=== PATIENT | male | born 1945 | race Two or more races ===

== ENCOUNTER 2017-11-22 21:35 | Emergency (ER) | payer MEDICARE ==
[~2017-11-22] VITALS: Ht 170.2 cm; Wt 65.8 kg
[2017-11-22 21:44] VITALS: BP 140/69
--- NOTE | 2017-11-22 21:45 | NUR ---
[facility] FAMILY C/O "CONSTIPATION X4 DAYS WITH PAIN 04/09 NONRADIATING", NAD NOTED, VSS, RESP EVEN AND UNLABORED, WAITING FOR MD ABDI.
[2017-11-22] MEDS ORDERED: IV NS 0.9% 1,000 ML BAG IV ONE (23:00)
[2017-11-22] MEDS ORDERED: LIDOCAINE 2% JEL UROJET 10 ML MM ONE (23:02)
[2017-11-22] MEDS ORDERED: NA PHOS,M-B/NA PHOS,DI-BA 1 EA ENEMA RC ONE ×2 (23:04→23:30)
[2017-11-22 23:17] LABS: BASOPHILS % (AUTO) 0.4 % (0.0-2.0); HEMATOCRIT 38 % (39-51); HEMOGLOBIN 12.8 g/dL (13.5-17.5); LYMPHOCYTES # (AUTO) 0.6 /CMM (0.8-4.8); LYMPHOCYTES % (AUTO) 7.5 % (20.0-44.0); MEAN CORPUSCULAR HEMOGLOBIN 32 PG (26.0-33.0); MEAN CORPUSCULAR HGB CONC 34 g/dl (31.0-36.0); MEAN CORPUSCULAR VOLUME 92 fL (80-96); MONOCYTES % (AUTO) 12.6 % (2.0-12.0); NEUTROPHILS # (AUTO) 6.3 /CMM (1.8-8.9); NEUTROPHILS % (AUTO) 79.5 % (43.0-81.0); PLATELET COUNT (AUTO) 110 /CMM (150-450); RDW COEFFICIENT OF VARIATION 13.1 (11.5-15.0); RED BLOOD CELL COUNT(AUTO) 4.07 MIL/uL (4.5-6.0)
--- NOTE | 2017-11-22 23:26 | NUR ---
PT UNABLE TO GIVE URINE SAMPLE AT THIS TIME, WILL TRY AGAIN AFTER IVFLUIDS
[2017-11-22 23:29] LABS: CARBON DIOXIDE 29 mmol/L (21-32); CHLORIDE 99 mmol/L (98-107); CREATININE 0.9 mg/dL (0.6-1.3); GLUCOSE 107 mg/dL (74-106); POTASSIUM 4.4 mmol/L (3.5-5.1); SODIUM SERUM 136 mmol/L (136-145); UREA NITROGEN, BLOOD 10 mg/dL (7-18)
[2017-11-22 23:33] LABS: INR 0.96 (0.87-1.13)
[2017-11-22 23:35] LABS: ALANINE AMINOTRANSFERASE 23 U/L (12-78); ALBUMIN 3.6 g/dL (3.4-5.0); ALKALINE PHOSPHATASE 116 U/L (46-116); ASPARTATE AMINOTRANSFERASE 30 U/L (15-37); BILIRUBIN,DIRECT 0.1 mg/dL (0.0-0.2); BILIRUBIN,TOTAL 0.6 mg/dL (0.2-1.0); LIPASE 94 U/L (73-393); TOTAL PROTEIN, SERUM 8.9 g/dL (6.4-8.2)
--- NOTE | 2017-11-23 00:44 | NUR ---
Patient does not wish to proceed with medical care recommended by . Patient given information related to possible complications, up to and including , which could occur as a result of leaving the hospital at this time. Patient verbalizes understanding of risks involved due to leaving against medical advice. Patient has signed AMA form.
== END 2017-11-23 00:46 | disposition left against medical advice (07) ==
LOC: ER 21:37
DX: K59.00 Constipation, unspecified (principal); Z53.20 Procedure and treatment not carried out because of patient's decision for unspecified reasons; Z88.0 Allergy status to penicillin; Z86.73 Personal history of transient ischemic attack (TIA), and cerebral infarction without residual deficits
CPT/HCPCS: 36415; 74176; 80048; 80076; 83690; 85025; 85730; 96360; 99285; A4606; J3490; J7030; Z7610

== ENCOUNTER 2024-01-23 16:09 | Inpatient (IN) | payer MEDICARE ==
[~2024-01-23] VITALS: Ht 177.8 cm; Wt 44.5 kg
[2024-01-23 16:38] LABS: BASOPHILS # (AUTO) 0.1 K/uL (0.0-0.2); BASOPHILS % (AUTO) 0.9 % (0.0-2.0); EOSINOPHILS # (AUTO) 0.1 K/uL (0.0-0.7); EOSINOPHILS % (AUTO) 0.9 % (0.0-6.0); HEMATOCRIT 31 % (39-51); LYMPHOCYTES # (AUTO) 1.4 K/uL (0.8-4.8); LYMPHOCYTES % (AUTO) 15.9 % (20.0-44.0); MEAN CORPUSCULAR HEMOGLOBIN 29 PG (26.0-33.0); MEAN CORPUSCULAR HGB CONC 32 g/dl (31.0-36.0); MEAN CORPUSCULAR VOLUME 90 fL (80-96); MONOCYTES % (AUTO) 11.1 % (2.0-12.0); NEUTROPHILS # (AUTO) 6.1 K/uL (1.8-8.9); NEUTROPHILS % (AUTO) 71.2 % (43.0-81.0); PLATELET COUNT (AUTO) 338 K/uL (150-450); RED BLOOD CELL COUNT(AUTO) 3.43 MIL/uL (4.5-6.0); RED CELL DISTRIBUTION WIDTH 16.2 % (11.5-15.0); WHITE BLOOD COUNT (AUTO) 8.6 K/uL (4.3-11.0)
[2024-01-23 17:01] LABS: CALCIUM, SERUM 8.5 mg/dL (8.5-10.1); CARBON DIOXIDE 23 mmol/L (21-32); CHLORIDE 101 mmol/L (98-107); CREATININE 0.7 mg/dL (0.6-1.3); GLUCOSE 101 mg/dL (74-106); POTASSIUM 4.4 mmol/L (3.5-5.1); SODIUM SERUM 129 mmol/L (136-145); UREA NITROGEN, BLOOD 11 mg/dL (7-18)
[2024-01-23 17:13] LABS: ALANINE AMINOTRANSFERASE 22 U/L (12-78); ALBUMIN 2.7 g/dL (3.4-5.0); ALKALINE PHOSPHATASE 143 U/L (46-116); ASPARTATE AMINOTRANSFERASE 20 U/L (15-37); BILIRUBIN,DIRECT 0.1 mg/dL (0.0-0.2); BILIRUBIN,TOTAL 0.3 mg/dL (0.2-1.0); TOTAL PROTEIN, SERUM 7.8 g/dL (6.4-8.2)
[2024-01-23] MEDS ORDERED: OMEP20CA15 PO (17:41)
[2024-01-23] MEDS ORDERED: POTA-10 PO (17:41)
[2024-01-23] MEDS ORDERED: LIOT25TA13 PO (17:41)
[2024-01-23] MEDS ORDERED: CLOP75TA15 PO (17:41)
[2024-01-23] MEDS ORDERED: MEGE20TA3 PO (17:41)
[2024-01-23] MEDS ORDERED: ESCI20TA PO (17:41)
[2024-01-23] MEDS ORDERED: SIMV-49 PO (17:41)
[2024-01-23] MEDS ORDERED: METO25TA4 PO (17:41)
[2024-01-23] MEDS ORDERED: MELA3TAB41 PO (17:41)
[2024-01-23] MEDS ORDERED: ACETAMINOPHEN 325 MG TABLET PO PRN (18:30)
[2024-01-23] MEDS ORDERED: ONDANSETRON HCL/PF 4 MG/2 ML VIAL IVP PRN (18:30)
[2024-01-23] MEDS ORDERED: MAGNESIUM HYDROXIDE 30 ML UDC PO PRN (18:30)
[2024-01-23] MEDS ORDERED: MAG HYDROX/AL HYDROX/SIMETH 30 ML UDC PO PRN (18:30)
[2024-01-23] MEDS: NITROGLYCERIN PACKET 1 GM PACKET TD ONE (19:12)
[2024-01-23] MEDS: ASPIRIN 325 MG TABLET PO ONE (19:12)
[2024-01-23] MEDS: ENOXAPARIN SODIUM 40 MG/0.4 ML DISP.SYRIN SQ SCH (19:13)
[2024-01-23 20:00] VITALS: BP 121/66; TEMP 98.4; O2SAT 100
[2024-01-23] MEDS: SIMVASTATIN 20 MG TABLET PO SCH (21:39)
[2024-01-23] MEDS ORDERED: Medication Not On Formulary EA (Melatonin 3 MG) PO SCH (22:00)
[2024-01-24] VITALS (7 sets, daily range): BP systolic 84–125; BP diastolic 54–76; TEMP 97.2–98.6; O2SAT 96–100
[2024-01-24] MEDS: ZOLPIDEM TARTRATE 5 MG TABLET PO PRN (00:43)
[2024-01-24] MEDS: Z GUARD REMEDY 4 OZ OINT TP PRN (00:47)
[2024-01-24 07:27] LABS: BASOPHILS # (AUTO) 0.1 K/uL (0.0-0.2); BASOPHILS % (AUTO) 0.7 % (0.0-2.0); EOSINOPHILS # (AUTO) 0.1 K/uL (0.0-0.7); EOSINOPHILS % (AUTO) 1.3 % (0.0-6.0); HEMATOCRIT 28 % (39-51); HEMOGLOBIN 9.2 g/dL (13.5-17.5); LYMPHOCYTES # (AUTO) 1.6 K/uL (0.8-4.8); LYMPHOCYTES % (AUTO) 23.3 % (20.0-44.0); MEAN CORPUSCULAR HEMOGLOBIN 30 PG (26.0-33.0); MEAN CORPUSCULAR HGB CONC 33 g/dl (31.0-36.0); MEAN CORPUSCULAR VOLUME 93 fL (80-96); MONOCYTES % (AUTO) 14.2 % (2.0-12.0); NEUTROPHILS # (AUTO) 4.1 K/uL (1.8-8.9); NEUTROPHILS % (AUTO) 60.5 % (43.0-81.0); PLATELET COUNT (AUTO) 296 K/uL (150-450); RED BLOOD CELL COUNT(AUTO) 3.04 MIL/uL (4.5-6.0); RED CELL DISTRIBUTION WIDTH 16.2 % (11.5-15.0); WHITE BLOOD COUNT (AUTO) 6.8 K/uL (4.3-11.0)
[2024-01-24] MEDS: PANTOPRAZOLE 40 MG TABLET.DR PO SCH (07:50)
[2024-01-24 07:51] LABS: CALCIUM, SERUM 8.1 mg/dL (8.5-10.1); CARBON DIOXIDE 23 mmol/L (21-32); CHLORIDE 104 mmol/L (98-107); CREATININE 0.6 mg/dL (0.6-1.3); GLUCOSE 82 mg/dL (74-106); MAGNESIUM 1.7 mg/dL (1.8-2.4); PHOSPHORUS 2.9 mg/dL (2.5-4.9); POTASSIUM 3.3 mmol/L (3.5-5.1); SODIUM SERUM 135 mmol/L (136-145); UREA NITROGEN, BLOOD 8 mg/dL (7-18)
[2024-01-24] MEDS: CLOPIDOGREL BISULFATE 75 MG TABLET PO SCH (08:17)
[2024-01-24] MEDS: POTASSIUM CHLORIDE 10 MEQ TABLET.SA PO SCH (08:17)
[2024-01-24] MEDS: MEGESTROL ACETATE 40 MG TABLET PO SCH (08:18)
[2024-01-24] MEDS: ESCITALOPRAM OXALATE (10 MG) 10 MG TABLET PO SCH (08:18)
[2024-01-24] MEDS: LIOTHYRONINE SODIUM (25 MCG) 25 MCG TABLET PO SCH (08:20)
[2024-01-24] MEDS: METOPROLOL SUCCINATE 25 MG TAB.SR.24H PO SCH (08:50)
[2024-01-24 08:57] LABS: CHOLESTEROL 101 mg/dL (<200); HDL CHOLESTEROL 39 mg/dL (40-60); LDL 50 mg/dL (0-99); THYROID STIMULATING HORMONE 23.311 uIU/mL (0.358-3.74); TRIGLYCERIDES 60 mg/dL (30-150)
[2024-01-24] MEDS ORDERED: MAGNESIUM OXIDE 400 MG TABLET PO ONE (10:00)
[2024-01-24] MEDS ORDERED: POTASSIUM CHLORIDE 20 MEQ TAB.PRT.SR PO ONE (10:00)
[2024-01-24 10:24] LABS: FERRITIN 910 ng/mL (8-388)
[2024-01-24 10:34] LABS: IRON, SERUM 45 ug/dl (50-175); TOTAL IRON BINDING CAPACITY 180 ug/dl (250-450)
[2024-01-24] MEDS: POTASSIUM CHLORIDE 20 MEQ TAB.PRT.SR PO SCH (10:59)
[2024-01-24] MEDS: Magnesium 1GM/D5W 100ML PREMIX 100 ML IV SCH (10:59)
[2024-01-24] MEDS: IV NS 0.9% 500 ML BAG IV ONE (13:53)
[2024-01-24] MEDS ORDERED: IV NS 0.9% 250 ML IV ONE (14:46)
[2024-01-24] MEDS ORDERED: CT SWABBABLE VALVE TRANS SET 1 EA INFUS.SET MC ONE (14:46)
[2024-01-24] MEDS ORDERED: IOHEXOL-350 100 ML VIAL IV ONE (14:46)
[2024-01-24] MEDS ORDERED: NITROGLYCERIN 0.4 MG/TAB BOTTLE ONE (14:47)
[2024-01-24] MEDS ORDERED: METOPROLOL TARTRATE INJ 5 MG/5 ML AMPUL ONE (14:47)
[2024-01-24] MEDS: NITROGLYCERIN 0.4 MG/TAB BOTTLE SL ONE (15:22)
[2024-01-24] MEDS: METOPROLOL TARTRATE INJ 5 MG/5 ML AMPUL IVP PRN (15:23)
[2024-01-24] MEDS ORDERED: ENOXAPARIN SODIUM 40 MG/0.4 ML DISP.SYRIN SQ SCH (21:00)
[2024-01-25] VITALS: BP 134/73; TEMP 98.2; O2SAT 96
[2024-01-25 00:47] VITALS: BP 134/73; TEMP 98.2; O2SAT 96
[2024-01-25 04:00] VITALS: BP 161/90; TEMP 98.2; O2SAT 98
[2024-01-25 04:16] VITALS: BP 161/90; TEMP 98.2; O2SAT 98
[2024-01-25 08:00] VITALS: BP 112/64; TEMP 97.5; O2SAT 100
[2024-01-25] MEDS: METOPROLOL TARTRATE 50 MG TABLET PO SCH (09:00)
[2024-01-25 10:49] LABS: BASOPHILS # (AUTO) 0.1 K/uL (0.0-0.2); EOSINOPHILS # (AUTO) 0.1 K/uL (0.0-0.7); EOSINOPHILS % (AUTO) 1.4 % (0.0-6.0); HEMATOCRIT 28 % (39-51); HEMOGLOBIN 9.4 g/dL (13.5-17.5); LYMPHOCYTES % (AUTO) 18.8 % (20.0-44.0); MEAN CORPUSCULAR HEMOGLOBIN 30 PG (26.0-33.0); MEAN CORPUSCULAR HGB CONC 33 g/dl (31.0-36.0); MEAN CORPUSCULAR VOLUME 89 fL (80-96); MONOCYTES # (AUTO) 0.8 K/uL (0.1-1.30); MONOCYTES % (AUTO) 15.2 % (2.0-12.0); NEUTROPHILS # (AUTO) 3.3 K/uL (1.8-8.9); NEUTROPHILS % (AUTO) 63.6 % (43.0-81.0); PLATELET COUNT (AUTO) 305 K/uL (150-450); RED BLOOD CELL COUNT(AUTO) 3.15 MIL/uL (4.5-6.0); RED CELL DISTRIBUTION WIDTH 15.7 % (11.5-15.0); WHITE BLOOD COUNT (AUTO) 5.2 K/uL (4.3-11.0)
[2024-01-25 10:52] LABS: CALCIUM, SERUM 8.1 mg/dL (8.5-10.1); CREATININE 0.6 mg/dL (0.6-1.3); POTASSIUM 3.1 mmol/L (3.5-5.1)
[2024-01-25 10:57] LABS: ALBUMIN 2.2 g/dL (3.4-5.0); BILIRUBIN,TOTAL 0.3 mg/dL (0.2-1.0); MAGNESIUM 1.8 mg/dL (1.8-2.4); PHOSPHORUS 2.1 mg/dL (2.5-4.9); TOTAL PROTEIN, SERUM 7.1 g/dL (6.4-8.2)
[2024-01-25 11:06] LABS: THYROID STIMULATING HORMONE 25.563 uIU/mL (0.358-3.74)
[2024-01-25] MEDS: ENSURE ENLIVE 237 ML LIQUID (VANILLA) PO SCH (13:00)
[2024-01-25] MEDS ORDERED: IV NS 0.9% 250 ML IV ONE (14:47)
[2024-01-25] MEDS ORDERED: IOHEXOL-350 100 ML VIAL IV ONE (14:47)
[2024-01-25] MEDS ORDERED: METOPROLOL TARTRATE INJ 5 MG/5 ML AMPUL ONE (14:47)
[2024-01-25] MEDS ORDERED: CT SWABBABLE VALVE TRANS SET 1 EA INFUS.SET MC ONE (14:47)
[2024-01-25] MEDS ORDERED: NITROGLYCERIN 0.4 MG/TAB BOTTLE ONE (14:47)
[2024-01-25] MEDS: NITROGLYCERIN 0.4 MG/TAB BOTTLE SL ONE (15:26)
[2024-01-25 16:00] VITALS: BP 118/57; TEMP 98.6; O2SAT 100
[2024-01-25] MEDS: K PHOS NEUTRAL 250 MG TABLET PO ONE (16:45)
[2024-01-26] MEDS ORDERED: METOPROLOL SUCCINATE 50 MG TAB.SR.24H PO SCH (09:00)
== END 2024-01-25 21:09 | disposition home health service (06) | DRG 313 ==
LOC: ER 16:11 → TELE 17:35
PROVIDERS: ADMIT Student in an Organized Health Care Education/Training Program
DX: R07.89 Other chest pain (principal); E44.0 Moderate protein-calorie malnutrition; C83.10 Mantle cell lymphoma, unspecified site; F03.93 Unspecified dementia, unspecified severity, with mood disturbance; E22.2 Syndrome of inappropriate secretion of antidiuretic hormone; E03.9 Hypothyroidism, unspecified; Z86.73 Personal history of transient ischemic attack (TIA), and cerebral infarction without residual deficits; I10 Essential (primary) hypertension; Z88.0 Allergy status to penicillin; Z79.02 Long term (current) use of antithrombotics/antiplatelets; Z79.899 Other long term (current) drug therapy; E87.6 Hypokalemia; E83.42 Hypomagnesemia; E78.5 Hyperlipidemia, unspecified; D64.9 Anemia, unspecified; E86.1 Hypovolemia; F39 Unspecified mood [affective] disorder; T43.225A Adverse effect of selective serotonin reuptake inhibitors, initial encounter; Y92.9 Unspecified place or not applicable; Z79.82 Long term (current) use of aspirin
CPT/HCPCS: 36415; 71045-TC; 75574; 80048-TC; 80053-TC; 80061-TC; 80076-TC; 82728-TC; 83540-TC; 83735-TC; 84100-TC; 84439-TC; 84443-TC; 84484-TC; 85025-TC; 87081-TC; 93307-TC; 97110-TC; 97116-TC; 97530-TC; A4223; G0378; J1650; J3475; J3490; J7030; J7040; J7050; Q9967

== ENCOUNTER 2024-04-21 11:27 | Inpatient (IN) | payer MEDICARE ==
[~2024-04-21] VITALS: Ht 167.6 cm; Wt 39.9 kg
[~2024-04-21 11:27] MED LIST: CLOP75TA15 PO; ESCI20TA PO; LIOT25TA13 PO; MEGE20TA3 PO; MELA3TAB41 PO; METO25TA4 PO; OMEP20CA15 PO; POTA-10 PO; SIMV-49 PO
[2024-04-21 11:59] LABS: BASOPHILS % (AUTO) 0.2 % (0.0-2.0); EOSINOPHILS % (AUTO) 0.3 % (0.0-6.0); HEMATOCRIT 31 % (39-51); HEMOGLOBIN 9.8 g/dL (13.5-17.5); LYMPHOCYTES # (AUTO) 0.3 K/uL (0.8-4.8); LYMPHOCYTES % (AUTO) 7.8 % (20.0-44.0); MEAN CORPUSCULAR HEMOGLOBIN 30 PG (26.0-33.0); MEAN CORPUSCULAR HGB CONC 32 g/dl (31.0-36.0); MEAN CORPUSCULAR VOLUME 94 fL (80-96); MONOCYTES % (AUTO) 0.5 % (2.0-12.0); NEUTROPHILS # (AUTO) 3.1 K/uL (1.8-8.9); NEUTROPHILS % (AUTO) 91.2 % (43.0-81.0); PLATELET COUNT (AUTO) 361 K/uL (150-450); RED BLOOD CELL COUNT(AUTO) 3.28 MIL/uL (4.5-6.0); RED CELL DISTRIBUTION WIDTH 14.6 % (11.5-15.0); WHITE BLOOD COUNT (AUTO) 3.4 K/uL (4.3-11.0)
[2024-04-21 12:00] VITALS: BP 142/117; TEMP 98.2; O2SAT 95
[2024-04-21] MEDS ORDERED: FERR324T4 PO (12:11)
[2024-04-21] MEDS ORDERED: FOLI0.4T6 PO (12:11)
[2024-04-21] MEDS ORDERED: OMEP40CA21 PO (12:11)
[2024-04-21 12:13] LABS: CALCIUM, SERUM 9.8 mg/dL (8.5-10.1); CARBON DIOXIDE 16 mmol/L (21-32); CHLORIDE 103 mmol/L (98-107); GLUCOSE 98 mg/dL (74-106); POTASSIUM 4.3 mmol/L (3.5-5.1); SODIUM SERUM 142 mmol/L (136-145)
[2024-04-21 12:14] LABS: UREA NITROGEN, BLOOD 11 mg/dL (7-18)
[2024-04-21 12:27] LABS: ALANINE AMINOTRANSFERASE 19 U/L (12-78); ALBUMIN 2.3 g/dL (3.4-5.0); ALKALINE PHOSPHATASE 151 U/L (46-116); ASPARTATE AMINOTRANSFERASE 14 U/L (15-37); BILIRUBIN,DIRECT 0.3 mg/dL (0.0-0.2); BILIRUBIN,TOTAL 0.8 mg/dL (0.2-1.0); NT-PRO BNP 4894 pg/mL (0-125); TOTAL PROTEIN, SERUM 8.3 g/dL (6.4-8.2)
[2024-04-21] MEDS ORDERED: LIOTHYRONINE SODIUM (25 MCG) 25 MCG TABLET PO SCH (13:00)
[2024-04-21] MEDS ORDERED: Z GUARD REMEDY 4 OZ OINT TP PRN (13:00)
[2024-04-21] MEDS ORDERED: ONDANSETRON HCL/PF 4 MG/2 ML VIAL IVP PRN (13:00)
[2024-04-21] MEDS ORDERED: MAGNESIUM HYDROXIDE 30 ML UDC PO PRN (13:00)
[2024-04-21] MEDS ORDERED: ACETAMINOPHEN 325 MG TABLET PO PRN (13:00)
[2024-04-21] MEDS ORDERED: HYDROCODONE/APAP 5/325MG TABLET PO PRN (13:00)
[2024-04-21] MEDS ORDERED: TEMAZEPAM 15 MG CAPSULE PO PRN (13:00)
[2024-04-21] MEDS ORDERED: MAG HYDROX/AL HYDROX/SIMETH 30 ML UDC PO PRN (13:00)
[2024-04-21] MEDS: PANTOPRAZOLE 40 MG TABLET.DR PO SCH (14:58)
[2024-04-21 16:00] VITALS: BP 112/87; TEMP 97.9; O2SAT 96
[2024-04-21] MEDS: IV D5/0.45 NACL 1,000 ML IV PRN (16:14)
[2024-04-21 17:15] VITALS: BP_SYST 126; BP_SYST 138; BP_SYST 140; BP_DIAS 65; BP_DIAS 70; TEMP 98.3; O2SAT 100
[2024-04-21 20:00] VITALS: BP 90/60; TEMP 99.3; O2SAT 100
[2024-04-21] MEDS: IV NS 0.9% 500 ML IV ONE (21:30)
[2024-04-21] MEDS ORDERED: IV NS 0.9% 1,000 ML BAG IV PRN (22:30)
[2024-04-21 23:55] VITALS: BP 90/60; TEMP 98.4; O2SAT 100
[2024-04-22] VITALS (7 sets, daily range): BP systolic 80–107; BP diastolic 56–71; TEMP 97.5–98.6; O2SAT 95–100
[2024-04-22] MEDS: IV NS 0.9% 500 ML IV ONE (01:12)
[2024-04-22] MEDS: IV NS 0.9% 1,000 ML IV PRN (05:03)
[2024-04-22 07:37] LABS: BASOPHILS % (AUTO) 0.1 % (0.0-2.0); HEMATOCRIT 23 % (39-51); HEMOGLOBIN 7.5 g/dL (13.5-17.5); LYMPHOCYTES # (AUTO) 0.7 K/uL (0.8-4.8); LYMPHOCYTES % (AUTO) 3.4 % (20.0-44.0); MEAN CORPUSCULAR HEMOGLOBIN 30 PG (26.0-33.0); MEAN CORPUSCULAR HGB CONC 33 g/dl (31.0-36.0); MEAN CORPUSCULAR VOLUME 92 fL (80-96); MONOCYTES # (AUTO) 1.6 K/uL (0.1-1.30); MONOCYTES % (AUTO) 7.7 % (2.0-12.0); NEUTROPHILS # (AUTO) 17.9 K/uL (1.8-8.9); NEUTROPHILS % (AUTO) 88.8 % (43.0-81.0); PLATELET COUNT (AUTO) 264 K/uL (150-450); RED BLOOD CELL COUNT(AUTO) 2.48 MIL/uL (4.5-6.0); RED CELL DISTRIBUTION WIDTH 14.5 % (11.5-15.0); WHITE BLOOD COUNT (AUTO) 20.2 K/uL (4.3-11.0)
[2024-04-22 07:51] LABS: CALCIUM, SERUM 7.9 mg/dL (8.5-10.1); CARBON DIOXIDE 21 mmol/L (21-32); CHLORIDE 105 mmol/L (98-107); CREATININE 1.2 mg/dL (0.6-1.3); GLUCOSE 107 mg/dL (74-106); MAGNESIUM 1.6 mg/dL (1.8-2.4); PHOSPHORUS 3.1 mg/dL (2.5-4.9); POTASSIUM 3.3 mmol/L (3.5-5.1); SODIUM SERUM 137 mmol/L (136-145); UREA NITROGEN, BLOOD 25 mg/dL (7-18)
[2024-04-22] MEDS: ESCITALOPRAM OXALATE (10 MG) 10 MG TABLET PO SCH (08:48)
[2024-04-22] MEDS: CLOPIDOGREL BISULFATE 75 MG TABLET PO SCH (08:48)
[2024-04-22] MEDS: FOLIC ACID 1 MG TABLET PO SCH (08:48)
[2024-04-22] MEDS: FERROUS SULFATE (325 MG) 325 MG/TAB TABLET PO SCH (08:48)
[2024-04-22] MEDS: MEGESTROL ACETATE 40 MG TABLET PO SCH (08:48)
[2024-04-22] MEDS: METOPROLOL SUCCINATE 25 MG TAB.SR.24H PO SCH (09:00)
[2024-04-22] MEDS ORDERED: SIMVASTATIN 40 MG TABLET PO SCH (09:00)
[2024-04-22] MEDS ORDERED: POTASSIUM CHLORIDE 20 MEQ TAB.PRT.SR PO ONE (09:00)
[2024-04-22 09:03] LABS: NEUTROPHILS % (MANUAL) 87 (42-76)
[2024-04-22 09:04] LABS: BAND % (MANUAL) 1 % (0.0-5.0); LYMPHOCYTES % (MANUAL) 4 % (16-48); MONOCYTES % (MANUAL) 8 % (0-11.0); PLATELET ESTIMATE ADEQUATE
[2024-04-22 09:05] LABS: ANISOCYTOSIS 1+
[2024-04-22 09:08] LABS: APPEARANCE,URINE SLIGHTLY CLOUDY (CLEAR); BILIRUBIN,URINE NEGATIVE (NEGATIVE); BLOOD, URINE 3+ Ery/uL (NEGATIVE); COLOR,URINE YELLOW (YELLOW); KETONES,URINE TRACE mg/dL (NEGATIVE); LEUKOCYTE ESTERASE ,URINE 1+ (NEGATIVE); NITRITE, URINE POSITIVE (NEGATIVE); PH,URINE 5.5 (5.0-8.0); PROTEIN,URINE 1+ mg/dl (NEGATIVE); UGLUCOSE NEGATIVE (NEGATIVE)
[2024-04-22] MEDS: POTASSIUM CHLORIDE 20 MEQ TAB.PRT.SR PO ONE (09:10)
[2024-04-22 09:22] LABS: OCCULT BLOOD STOOL NEGATIVE (NEGATIVE)
[2024-04-22 09:25] LABS: ADD URINE CULTURE YES; BACTERIA,URINE Many /HPF (None Seen); TRICHOMONAS,URINE None Seen /HPF (None Seen); YEAST,URINE None Seen /HPF (None Seen)
[2024-04-22 09:26] LABS: HYALINE CASTS, URINE Few /LPF (None Seen); MUCUS,URINE Few /LPF (None Seen); URINE AMORPHOUS URATE Few /HPF (None Seen)
[2024-04-22] MEDS: MAGNESIUM OXIDE 400 MG TABLET PO ONE (10:02)
[2024-04-22 10:09] LABS: HEMOGLOBIN 8.1 g/dL (13.5-17.5)
[2024-04-22] MEDS: LEVOFLOXACIN 500 MG /D5W 100ML 500 MG in PREMIX 1 EA IV SCH (13:34)
[2024-04-22] MEDS: SOD FERRIC GLUC 125 MG in IV NS 0.9% 100 ML IV SCH (15:30)
[2024-04-22] MEDS: LIOTHYRONINE SODIUM (25 MCG) 25 MCG TABLET PO SCH (20:30)
[2024-04-22] MEDS: PANTOPRAZOLE 40 MG VIAL IV SCH (20:30)
[2024-04-23] VITALS (7 sets, daily range): BP systolic 111–142; BP diastolic 50–89; TEMP 97.5–100.2; O2SAT 94–100
[2024-04-23] MEDS: PANTOPRAZOLE 40 MG/PACK PACK PO SCH (09:01)
[2024-04-23 09:34] LABS: HEMOGLOBIN 9.4 g/dL (13.5-17.5)
[2024-04-23 09:47] LABS: BASOPHILS % (AUTO) 0.1 % (0.0-2.0); EOSINOPHILS % (AUTO) 0.1 % (0.0-6.0); HEMATOCRIT 29 % (39-51); HEMOGLOBIN 9.3 g/dL (13.5-17.5); LYMPHOCYTES # (AUTO) 0.6 K/uL (0.8-4.8); LYMPHOCYTES % (AUTO) 3.5 % (20.0-44.0); MEAN CORPUSCULAR HEMOGLOBIN 29 PG (26.0-33.0); MEAN CORPUSCULAR HGB CONC 32 g/dl (31.0-36.0); MEAN CORPUSCULAR VOLUME 91 fL (80-96); MONOCYTES % (AUTO) 5.8 % (2.0-12.0); NEUTROPHILS # (AUTO) 15.8 K/uL (1.8-8.9); NEUTROPHILS % (AUTO) 90.5 % (43.0-81.0); PLATELET COUNT (AUTO) 273 K/uL (150-450); RED BLOOD CELL COUNT(AUTO) 3.22 MIL/uL (4.5-6.0); RED CELL DISTRIBUTION WIDTH 14.6 % (11.5-15.0); WHITE BLOOD COUNT (AUTO) 17.5 K/uL (4.3-11.0)
[2024-04-23 10:52] LABS: CALCIUM, SERUM 8.3 mg/dL (8.5-10.1); CREATININE 0.7 mg/dL (0.6-1.3); POTASSIUM 3.1 mmol/L (3.5-5.1)
[2024-04-23] MEDS: POTASSIUM CHLORIDE 20 MEQ TAB.PRT.SR PO SCH (12:02)
[2024-04-23] MEDS: SIMVASTATIN 20 MG TABLET PO SCH (12:02)
[2024-04-23] MEDS: ENSURE ENLIVE 237 ML LIQUID (VANILLA) PO SCH (12:43)
[2024-04-23] MEDS: ENSURE ENLIVE CHOC 237 ML CAN PO SCH (17:17)
[2024-04-24] VITALS (7 sets, daily range): BP systolic 100–137; BP diastolic 73–89; TEMP 98–99; O2SAT 96–100
[2024-04-24 07:02] LABS: CALCIUM, SERUM 8.9 mg/dL (8.5-10.1); CREATININE 0.7 mg/dL (0.6-1.3); POTASSIUM 3.7 mmol/L (3.5-5.1)
[2024-04-24 08:38] LABS: HEMOGLOBIN 9.7 g/dL (13.5-17.5)
[2024-04-24 10:22] LABS: BASOPHILS % (AUTO) 0.3 % (0.0-2.0); HEMATOCRIT 30 % (39-51); HEMOGLOBIN 9.7 g/dL (13.5-17.5); LYMPHOCYTES # (AUTO) 0.6 K/uL (0.8-4.8); LYMPHOCYTES % (AUTO) 3.6 % (20.0-44.0); MEAN CORPUSCULAR HEMOGLOBIN 29 PG (26.0-33.0); MEAN CORPUSCULAR HGB CONC 33 g/dl (31.0-36.0); MEAN CORPUSCULAR VOLUME 88 fL (80-96); MONOCYTES % (AUTO) 6.4 % (2.0-12.0); NEUTROPHILS % (AUTO) 89.7 % (43.0-81.0); PLATELET COUNT (AUTO) 304 K/uL (150-450); RED BLOOD CELL COUNT(AUTO) 3.34 MIL/uL (4.5-6.0); RED CELL DISTRIBUTION WIDTH 14.3 % (11.5-15.0); WHITE BLOOD COUNT (AUTO) 15.7 K/uL (4.3-11.0)
[2024-04-24 11:36] LABS: ALBUMIN 1.7 g/dL (3.4-5.0); BILIRUBIN,DIRECT 0.2 mg/dL (0.0-0.2); BILIRUBIN,TOTAL 0.5 mg/dL (0.2-1.0); TOTAL PROTEIN, SERUM 7.1 g/dL (6.4-8.2)
[2024-04-24] MEDS: DIVALPROEX SODIUM 125 MG TABLET.DR PO SCH (12:40)
[2024-04-25] VITALS (9 sets, daily range): BP systolic 92–121; BP diastolic 59–71; TEMP 97.7–98.8; O2SAT 96–97
[2024-04-25 06:41] LABS: BASOPHILS % (AUTO) 0.1 % (0.0-2.0); EOSINOPHILS % (AUTO) 0.1 % (0.0-6.0); HEMATOCRIT 25 % (39-51); HEMOGLOBIN 8.4 g/dL (13.5-17.5); LYMPHOCYTES # (AUTO) 0.8 K/uL (0.8-4.8); LYMPHOCYTES % (AUTO) 5.7 % (20.0-44.0); MEAN CORPUSCULAR HEMOGLOBIN 30 PG (26.0-33.0); MEAN CORPUSCULAR HGB CONC 33 g/dl (31.0-36.0); MEAN CORPUSCULAR VOLUME 89 fL (80-96); MONOCYTES % (AUTO) 7.2 % (2.0-12.0); NEUTROPHILS % (AUTO) 86.9 % (43.0-81.0); PLATELET COUNT (AUTO) 254 K/uL (150-450); RED BLOOD CELL COUNT(AUTO) 2.85 MIL/uL (4.5-6.0); WHITE BLOOD COUNT (AUTO) 13.8 K/uL (4.3-11.0)
[2024-04-25 07:26] LABS: CALCIUM, SERUM 8.1 mg/dL (8.5-10.1); CREATININE 0.9 mg/dL (0.6-1.3); POTASSIUM 3.3 mmol/L (3.5-5.1)
[2024-04-25] MEDS: POTASSIUM CHLORIDE 20 MEQ TAB.PRT.SR PO ONE (09:05)
[2024-04-25] MEDS ORDERED: DUTA0.5C PO (09:51)
[2024-04-25] MEDS ORDERED: TAMS-12 PO (09:51)
[2024-04-25] MEDS ORDERED: DIVA125T2 PO (09:53)
[2024-04-25 09:55] LABS: HEMOGLOBIN 9.2 g/dL (13.5-17.5)
[2024-04-25] MEDS ORDERED: LEVO500T90 PO (09:56)
[2024-04-25] MEDS: DUTASTERIDE (0.5 MG) 0.5 MG CAPSULE PO SCH (10:06)
[2024-04-25 11:45] LABS: FREE PSA < 0.06 ng/mL (0.00-45); PROSTATE SPECIFIC ANTIGEN SCR < 0.13 ng/mL (0.00-4.00)
[2024-04-25] MEDS: TAMSULOSIN 0.4 MG CAP.SR.24H PO SCH (21:14)
[2024-04-26] VITALS (9 sets, daily range): BP systolic 98–109; BP diastolic 56–67; TEMP 97.6–98.8; O2SAT 93–98
[2024-04-26 07:00] LABS: BASOPHILS % (AUTO) 0.2 % (0.0-2.0); EOSINOPHILS # (AUTO) 0.1 K/uL (0.0-0.7); EOSINOPHILS % (AUTO) 0.6 % (0.0-6.0); HEMATOCRIT 24 % (39-51); HEMOGLOBIN 8.1 g/dL (13.5-17.5); LYMPHOCYTES # (AUTO) 0.7 K/uL (0.8-4.8); MEAN CORPUSCULAR HEMOGLOBIN 30 PG (26.0-33.0); MEAN CORPUSCULAR HGB CONC 34 g/dl (31.0-36.0); MEAN CORPUSCULAR VOLUME 89 fL (80-96); MONOCYTES % (AUTO) 11.1 % (2.0-12.0); NEUTROPHILS # (AUTO) 7.1 K/uL (1.8-8.9); NEUTROPHILS % (AUTO) 80.1 % (43.0-81.0); PLATELET COUNT (AUTO) 217 K/uL (150-450); RED BLOOD CELL COUNT(AUTO) 2.72 MIL/uL (4.5-6.0); RED CELL DISTRIBUTION WIDTH 14.3 % (11.5-15.0); WHITE BLOOD COUNT (AUTO) 8.9 K/uL (4.3-11.0)
[2024-04-26 07:06] LABS: APPEARANCE,URINE CLOUDY (CLEAR); BILIRUBIN,URINE NEGATIVE (NEGATIVE); BLOOD, URINE 3+ Ery/uL (NEGATIVE); COLOR,URINE YELLOW (YELLOW); KETONES,URINE NEGATIVE (NEGATIVE); LEUKOCYTE ESTERASE ,URINE 3+ (NEGATIVE); NITRITE, URINE NEGATIVE (NEGATIVE); PH,URINE 6.5 (5.0-8.0); PROTEIN,URINE NEGATIVE (NEGATIVE); UGLUCOSE NEGATIVE (NEGATIVE); UROBILINOGEN,URINE 0.2 EU/dL (0.2)
[2024-04-26 07:25] LABS: ADD URINE CULTURE YES; BACTERIA,URINE Few /HPF (None Seen); SQUAMOUS EPITHELIAL CELL,UR Rare /HPF (None Seen)
== END 2024-04-26 21:00 | disposition home health service (06) | DRG 640 ==
LOC: ER 11:30 → TELE 14:04
PROVIDERS: ADMIT Nurse Practitioner Acute Care; ATTEND Nurse Practitioner Acute Care
DX: E86.0 Dehydration (principal); E43 Unspecified severe protein-calorie malnutrition; N39.0 Urinary tract infection, site not specified; Z68.1 Body mass index [BMI] 19.9 or less, adult; F01.53 Vascular dementia, unspecified severity, with mood disturbance; N17.9 Acute kidney failure, unspecified; R64 Cachexia; R55 Syncope and collapse; R62.7 Adult failure to thrive; E03.9 Hypothyroidism, unspecified; E78.5 Hyperlipidemia, unspecified; E87.6 Hypokalemia; F32.A Depression, unspecified; I10 Essential (primary) hypertension; M89.8X9 Other specified disorders of bone, unspecified site; Z79.899 Other long term (current) drug therapy; Z86.73 Personal history of transient ischemic attack (TIA), and cerebral infarction without residual deficits; N42.83 Cyst of prostate; D63.8 Anemia in other chronic diseases classified elsewhere; M62.50 Muscle wasting and atrophy, not elsewhere classified, unspecified site; Z85.118 Personal history of other malignant neoplasm of bronchus and lung; Z88.0 Allergy status to penicillin; Z66 Do not resuscitate; F29 Unspecified psychosis not due to a substance or known physiological condition; R53.1 Weakness; N40.1 Benign prostatic hyperplasia with lower urinary tract symptoms; R33.8 Other retention of urine; Z85.72 Personal history of non-Hodgkin lymphomas; B96.20 Unspecified Escherichia coli [E. coli] as the cause of diseases classified elsewhere
CPT/HCPCS: 36415; 70450-TC; 71045-TC; 71250-TC; 80048-TC; 80076-TC; 81001; 82272-TC; 82962-TC; 83735-TC; 83880; 84100-TC; 84153-TC; 84154-TC; 84443-TC; 84484-TC; 85025-TC; 85027-TC; 87086-TC; 92526; 92611-TC; 97110-TC; 97112-TC; 97530-TC; 97535-TC; A4216; A4217; A4223; C9113; G0378; J1956; J2916; J3490; J7030; J7040